=== PATIENT | female | born 1995 | race Caucasian/White ===

== ENCOUNTER 2017-04-03 21:00 | Outpatient (CLI) | payer OTHER ==
[~2017-04-03] VITALS: Ht 160 cm; Wt 117.2 kg
[~2017-04-03 21:00] MED LIST: FERR240T9 PO; LORA-441 PO; PREN1TAB17 PO
[2017-04-03 22:00] VITALS: BP 131/71; PULSE 80; RESP 18; Ht 160 cm; Wt 117.2 kg
--- NOTE | 2017-04-04 01:47 | RADRPT ---
PROCEDURE: ULTRASOUND OBSTETRICAL CLINICAL INDICATION: 21-year-old female with contractions for amniotic fluid index evalua tion. TECHNIQUE: Multiple sonographic images of the pelvis were obtained. The images were reviewed on a PACS workstation. COMPARISON: No prior studies are available for comparison. FINDINGS: The cervix is not well visualized. There is a single viable intrauterine gestation. Cardiac activit y is present with 163 beats per minute. There is a vertex presentation. The placenta is anterior. There is no evidence for an abruption or placenta previa. There is a normal amount of amniotic fluid with an TARA = 9.8 cm. IMPRESSION: 1. Single viable intrauterine gestation with vertex presentation. 2. The amniotic fluid index equals 9.8 cm. .Jean Esquivel MD, Date Time Electronically viewed and signed by .Jean Esquivel MD, on 04/04/2017 01:46 .M/
--- NOTE | 2017-04-04 06:14 | TRIAGE ---
OB Triage Datetime Report Generated by CPN: 04/04/2017 06:14 Datetime: 04/04/2017 04:18 Stage of : OB Triage Datetime: 04/04/2017 02:17 Labor Evaluation Frequency: 135 Labor Evaluation Frequency: 0 Monitor Mode: External Quality: Mild Pattern: Normal: <= 5 Contractions in 10 Minutes Resting Tone [place]: Relaxed Heart Rate FHR Baseline Rate: 135 Monitor Mode: External US FHR Baseline Changes: No Baseline Change Variability: Moderate 6-25 bpm Accelerations: 15X15 Decelerations: None Category: Category I Datetime: 04/04/2017 01:20 Monitor Mode: External Quality: Mild Pattern: Normal: <= 5 Contractions in 10 Minutes Resting Tone [place]: Relaxed Monitor Mode: External US FHR Baseline Changes: No Baseline Change Variability: Moderate 6-25 bpm Accelerations: 15X15 Decelerations: None Category: Category I Datetime: 04/04/2017 00:30 Stage of : OB Triage Datetime: 04/04/2017 00:21 Stage of : OB Triage Labor Evaluation Frequency: 0 Monitor Mode: External Heart Rate FHR Baseline Rate: 145 Monitor Mode: External US FHR Baseline Changes: No Baseline Change Variability: Moderate 6-25 bpm Accelerations: 15X15 Decelerations: None Category: Category I Datetime: 04/03/2017 23:32 Labor Evaluation Frequency: 0 Monitor Mode: External Heart Rate FHR Baseline Rate: 135 Monitor Mode: External US FHR Baseline Changes: No Baseline Change Variability: Moderate 6-25 bpm Accelerations: 15X15 Decelerations: None Category: Category I Datetime: 04/03/2017 23:00 Labor Evaluation Frequency: IRREGULAR Monitor Mode: External Duration (sec)2399: 60 Quality: Mild Pattern: Normal: <= 5 Contractions in 10 Minutes Resting Tone [place]: Relaxed Heart Rate FHR Baseline Rate: 135 Monitor Mode: External US FHR Baseline Changes: No Baseline Change Variability: Moderate 6-25 bpm Accelerations: 15X15 Decelerations: None Category: Category I Datetime: 04/03/2017 21:52 Labor Evaluation Frequency: 3-4 Monitor Mode: External Duration (sec)2399: 120 Quality: Mild Pattern: Normal: <= 5 Contractions in 10 Minutes Resting Tone [place]: Relaxed Heart Rate FHR Baseline Rate: 135 Monitor Mode: External US FHR Baseline Changes: No Baseline Change Variability: Moderate 6-25 bpm Accelerations: 15X15 Category: Category I Datetime: 04/03/2017 21:50 Vaginal Exam Dilatation (cms): 0.0 Effacement (%): 0 Station: -3 Exam By: Jaden NIX Pool: Negative Nitrazine: Negative ROM Test Kit: COLLECTED Datetime: 04/03/2017 21:37 Time of Arrival: 04/03/2017 20:53 EGA: 38.2 Arrived By: Ambulatory Arrived From: Home Chief Complaint: LEAKING SINCE 03/31 UC'S SINCE 03/31 Movement: Present Contractions: Irregular Patient Complaints: Contractions; Other Time Provider Notified: 04/04/2017 22:55 Provider Notified: DR VERGARA Initial Plan: EFM, CALL OB, SVE, ROM+, NITRAZINE Datetime: 04/03/2017 21:22 Contraction Comments: APPLIED Comments: APPLED Datetime: 04/03/2017 10:13 Comments: Loss of ultrasound contact with heart rate due to maternal obesity and position. R N at bedside, ultrasound readjusted.
--- NOTE | 2017-04-11 03:45 | HP ---
DATE OF ADMISSION: 04/03/2017 CHIEF COMPLAINT: Uterine contractions. HISTORY OF PRESENT ILLNESS: The patient is a 21-year-old, II, para I, 0, 0, I with single intrauterine at 38 weeks and 2 days who comes in complaining of uterine contractions, and possible leakage of fluid. She states good movements. Denies nausea, vomiting, shortness of breath, chest pain, headache, visual changes, vaginal bleeding, urinary or GI symptoms. PHYSICAL EXAMINATION: GENERAL: The patient is comfortable, in no acute distress. She has appropriate mood and affect. VITAL SIGNS: Blood pressure 20/61, pulse rate 78, respiratory rate 18, temperature 98. HEART: Regular rhythm and rate. No murmur. LUNGS: Clear to auscultation bilaterally. ABDOMEN: Soft. Nontender. No rebound or organomegaly. Uterine fundal height is 38 weeks. heart rate 140 BPM, moderate variability acceleration. No deceleration. Category I. Uterine contraction occasional. PELVIC: 1/50/-3/cephalic/intact membrane. BACK: No CVA tenderness bilateral. EXTREMITIES: Mild to moderate edema. No varicose veins, thigh or calf tenderness bilateral. Homans' sign is negative bilateral. ASSESSMENT AND PLAN: The patient is a 21-year-old, II, para I, 0, 0, I with single intrauterine at 38 weeks and 2 days, with occasional uterine contractions, and possible leakage of fluid. Nitrazine test was negative. Ultrasound performed which revealed adequate amniotic fluid. Repeat exam with no cervical changes. Signs and symptoms of labor preeclampsia, kick count was discussed with the patient in detail. She expressed understanding, all of her questions were answered. She is discharged home in stable condition. Follow up with her primary ASSEMBLY MEMBER. Dictated By: Arlene Dodson MD /guy/anabela /Document#: [id number] IRINA
== END 2017-04-04 02:55 | disposition home or self-care (01) ==
LOC: OBT 21:00 → L-D 21:02 → OBT 04-04 02:55
PROVIDERS: ATTEND Obstetrics & Gynecology
DX: O62.9 Abnormality of forces of labor, unspecified (principal); Z3A.38 38 weeks gestation of pregnancy
CPT/HCPCS: 76815; 84112; Z7500; G0463

== ENCOUNTER 2017-04-12 19:18 | Inpatient (IN) | payer OTHER ==
[~2017-04-12] VITALS: Ht 162.6 cm; Wt 116.7 kg
[~2017-04-12 19:18] MED LIST changes: -LORA-441 PO
[2017-04-12 20:43] VITALS: BP 133/78; PULSE 85; RESP 18
--- NOTE | 2017-04-12 21:52 | RADRPT ---
PROCEDURE: Obstetrical ultrasound greater than 14 weeks CLINICAL INDICATION: Gestational diabetes. Estimated weight TECHNIQUE: Real time sonographic imaging of the gravid uterus is performed transabdominally and mu ltiple static arriaga scale and Doppler images are submitted for review as are measurements. The image s are reviewed on the PACS. COMPARISON: No relevant exams are available FINDINGS: There is a single living intrauterine gestation in cephalic presentation. The heart beat is estimated at 137 bpm. The measurements are as follows: BPD:9.22 cm HC:33.30 cm AC:36.82 cm FL:7.53 cm Estimated gestational age is 38 weeks 5 days. The estimated date of delivery is 04/21/2017. The estimated weight is 3810 grams. Placenta is anterior and grade2. There is no evidence of placenta previa or abruption. RPTAT:HJJR IMPRESSION: 1. Single viable intrauterine gestation in cephalic presentation estimated at 38 weeks 5 days with t he estimated date of delivery 04/21/2017. 2. Estimated weight 3810 g (8 pounds 6 ounces). Physician Dipak Date Time Electronically viewed and signed by Physician Dipak on 04/12/2017 21:51 JR/
--- NOTE | 2017-04-12 21:53 | RADRPT ---
PROCEDURE: US OB. CLINICAL INDICATION: Gestational diabetes TECHNIQUE: Pelvic ultrasound performed for biophysical profile. COMPARISON: 04/04/2017 FINDINGS: Single intrauterine gestation present with heart rate at 158 beats per minute. Presentation is ceph alic. Placenta is anterior, grade II. Biophysical profile score is 8/8 (breathing=2, movement=2, t one =2, fluid volume=2). Amniotic fluid volume is within normal limits, with TARA = 6.5 cm. RPTAT:HJJR IMPRESSION: 1. Biophysical profile score 8/8. 2. Amniotic fluid index 6.5 cm, previously 9.8 cm on the study of 04/04/2017. Physician Dipak Date Time Electronically viewed and signed by Physician Dipak on 04/12/2017 21:53 /
[2017-04-12] MEDS ORDERED: OXYTOCIN 30 UNITS/LR 500 ML IV PRN (22:00)
[2017-04-12] MEDS ORDERED: OXYTOCIN 30 UNITS/LR 500 ML IV SCH ×2 (22:00)
[2017-04-12] MEDS ORDERED: MISOPROSTOL 200 MCG TAB PR PRN (22:00)
[2017-04-12] MEDS ORDERED: METHYLERGONOVINE 0.2 MG INJ IM PRN (22:00)
[2017-04-12] MEDS ORDERED: CARBOPROST 250 MCG INJ IM PRN (22:00)
[2017-04-12] MEDS ORDERED: IBUPROFEN 600 MG TAB PO PRN (22:00)
[2017-04-12] MEDS ORDERED: AMPICILLIN 2 GM/NS (PMX) 100 ML IV ONE (22:00)
[2017-04-12] MEDS ORDERED: LIDOCAINE 1% (MPF) 30 ML INJ INJ PRN (22:00)
[2017-04-12] MEDS ORDERED: BUTORPHANOL 2 MG INJ IV PRN (22:00)
--- NOTE | 2017-04-12 22:41 | TRIAGE ---
OB Triage Datetime Report Generated by CPN: 04/12/2017 22:40 Datetime: 04/12/2017 21:26 Vaginal Exam Dilatation (cms): 2.0 Effacement (%): 50 Station: -4 Exam By: DR SOLANO Membrane Status: Intact Datetime: 04/12/2017 19:30 Time of Arrival: 04/12/2017 19:14 EGA: 39.4 Arrived By: Wheelchair Arrived From: Home Chief Complaint: c/ A1DM w/ c/o pelvic pain and "stretching pain" and burning x 2 day and DFM . States was called by clinic and told to come to hospital for monitoring and possible IOL Movement: Decreased Contractions: Occasional Rupture of Membranes: Denies Vaginal Bleeding: None Vaginal Discharge: Denies Recent Sexual Intercouse: Denies Abdominal Trauma: Not Applicable Patient Complaints: Contractions Time Provider Notified: 04/12/2017 20:00 Provider Notified: Dr Solano Initial Plan: EFM,SVE,EFW,BPP Datetime: 04/10/2017 10:59 Heart Rate Comments: Loss of contact, u/s adj, no decel ausc Datetime: 04/03/2017 21:37 EGA: 38.2
[2017-04-12] MEDS ORDERED: LACTATED RINGER'S 1,000 ML IV PRN (23:30)
--- NOTE | 2017-04-13 00:16 | HP ---
Date/Time of Note Date/Time of Note DATE: 04/13/17 TIME: 00:12 OB - History Hx of Present Free Text/Dictation 21-year-old with IUP at 39+ weeks with GDM A1 presented with complaint of decreased movement to triage. She was noted to be 2 cm dilated 50-4. Presentation vertex. TARA was 6. Due to decreased movement as well as GDM and borderline low TARA discussed with the patient regarding induction. Risk and benefit discussed. Patient desires to proceed. : 2 Para: 1 Spontaneous : 0 Care: Good Care Obstetrical Complications: Gestational Diabetes Other Concerns: Gestational diabetes, diet-controlled Past Family/Social History * Past Medical, Surgical, Family and Obstetric Histories reviewed from chart. OB Admission Exam Vital Signs Vital Signs Vital Signs Date Time Temp Pulse Resp B/P Pulse Ox O2 Delivery O2 Flow Rate FiO2 04/12/17 20:43 98.7 85 18 133/78 Room Air Physical Exam HEENT: WNL Heart: Rhythm Normal Lungs: Clear Abdomen: WNL Extremities: Normal Reflexes: Normal (1+ bilateral nonpitting edema) Cervical Dilatation: 2cm Effacement: 50% Station: -3 Membranes: Intact Heart Rate: 130's Accelerations: Accelerations Present Decelerations: No Decelerations Varibility: Moderate Contractions on Admission: >10 Minutes Apart Intensity: Mild OB Assessment/Plan Other Assessment: IUP at 39+ weeks GDM, A1 Decreased movement Borderline low TARA Obesity LGA Discussed regarding induction Cervix nonfavorable Risk and benefit of induction discussed Patient desires to proceed Modes of induction discussed including Cytotec versus Cervidil versus mechanical. Desires Cytotec Anticipate Obtain GBS results Consider prophylaxis if GBS is positive BROOKE SOLANO MD Apr 13, 2017 00:15
[2017-04-13] MEDS: LACTATED RINGER'S 1,000 ML IV SCH ×2 (00:45→07:18)
[2017-04-13 01:06] LABS: ADD SCAN DIFF NO
[2017-04-13 01:08] LABS: BASOPHILS % 0.1 % (0.0-2.0); EOSINOPHILS # 0.1 10^3/ul (0.0-0.5); EOSINOPHILS % 1.1 % (0.0-7.0); HEMATOCRIT 34.8 % (37.0-47.0); HEMOGLOBIN 11.6 g/dl (12.0-16.0); LYMPHOCYTES % 21.3 % (15.0-51.0); MEAN CORPUSCULAR HEMOGLOBIN 27.5 pg (29.0-33.0); MEAN CORPUSCULAR HGB CONC 33.3 g/dl (32.0-37.0); MEAN CORPUSCULAR VOLUME 82.5 fl (82.0-101.0); MEAN PLATELET VOLUME 11.9 fl (7.4-10.4); MONOCYTE # 0.5 10^3/ul (0.3-0.9); MONOCYTES % 5.8 % (0.0-11.0); NEUTROPHIL # 6.6 10^3/ul (1.6-7.5); NEUTROPHILS % 71.3 % (39.0-77.0); PLATELET COUNT 172 10^3/UL (140-415); RED BLOOD COUNT 4.22 10^6/ul (4.20-5.40); RED CELL DISTRIBUTION WIDTH 13.7 % (11.5-14.5); WHITE BLOOD COUNT 9.3 10^3/ul (4.8-10.8)
[2017-04-13 01:24] LABS: INR 0.89; PT RATIO 0.9
[2017-04-13 01:25] LABS: PARTIAL THROMBOPLASTIN TIME 28.1 Sec (25.0-35.0)
[2017-04-13] MEDS: MISOPROSTOL 25 MCG CAPSULE PO SCH ×2 (01:28→05:33)
[2017-04-13] MEDS ORDERED: AMPICILLIN 1 GM/NS (PMX) 50 ML IV SCH (02:00)
[2017-04-13] MEDS ORDERED: MINERAL OIL LIGHT 10 ML VIAL TOP PRN (08:30)
[2017-04-13] MEDS ORDERED: OXYTOCIN 30 UNITS/LR 500 ML IV SCH (09:00)
--- NOTE | 2017-04-13 11:06 | RADRPT ---
PROCEDURE: US biophysical profile. CLINICAL INDICATION: Decreased motion. TECHNIQUE: Multiple sonographic images of the uterus were obtained. The images were revi ewed on a PACS workstation. COMPARISON: 04/12/2017. FINDINGS: There is a single live intrauterine gestation. heart rate is 139 beats per minute. The position is cephalic. The placenta is anterior grade II with no abruption or previa. The TARA is 8.0 cm. (Normal = 5-20 cm.) Breathing Movement: 2 Gross Body Movement: 2 Tone: 2 Qualitative Amniotic Fluid Volume: 2 TOTAL: 8 IMPRESSION: 1. The biophysical score is 8/8. RPTAT: QQ .Jose De Jesus Saavedra MD, MD Date Time Electronically viewed and signed by .Jose De Jesus Saavedra MD, on 04/13/2017 11:05 .R/
--- NOTE | 2017-04-15 17:35 | PN ---
Triage Information Date/Time April 13, 2017 Hospital consult Weeks of Gestation This patient is a 21 years old 2 para 1 with estimated date of confinement of April 18, 2017 which makes her 39 weeks and 5 days . She was admitted this morning due to gestational diabetes mellitus and TARA of 6.1 cm yesterday On pelvic examination her cervix is 3 cm soft -2 station intact membranes. She was admitted in the hospital for induction of labor due to above conditions After 4 hours however patient decided to leave the hospital and to return when she is labor Current Medications Medications (Trade) Dose Ordered Sig/Janie Route PRN Reason Start Time Stop Time Status Last Admin Dose Admin Lactated Ringer's 1,000 ml @ 125 mls/hr Q8H IV 04/12/17 21:45 04/13/17 13:19 DC 04/13/17 07:18 125 MLS/HR Ampicillin 100 ml @ 100 mls/hr ONCE ONCE IV 04/12/17 22:00 04/13/17 02:26 DC Ampicillin (Ampicillin 1 Gm/ NS (Pmx)) 50 ml @ 100 mls/hr Q4H IV 04/13/17 02:00 04/13/17 02:26 DC Misoprostol (Cytotec 25 Mcg Capsule) 50 mcg Q4 PO 04/13/17 01:00 04/13/17 10:18 DC 04/13/17 05:33 50 MCG Butorphanol Tartrate (Stadol) 2 mg Q2H PRN IV PAIN 04/12/17 22:00 04/13/17 13:19 DC 04/13/17 06:19 2 MG Lidocaine 30 ml 30 ml ONCE PRN INJ EPISIOTOMY/TEARING 04/12/17 22:00 04/13/17 13:19 DC Oxytocin/Lactated Ringer's 500 ml @ 125 mls/hr ONCE -MAY REPEAT X1 IV 04/12/17 22:00 04/13/17 13:19 DC Oxytocin/Lactated Ringer's 500 ml @ 125 mls/hr ONCE IV 04/12/17 22:00 04/13/17 13:19 DC Ibuprofen 600 mg 600 mg ONCE PRN PO Mild Pain (Pain Score 1-3) 04/12/17 22:00 04/13/17 13:19 DC Lactated Ringer's 1,000 ml @ 2,000 mls/hr Q30M PRN IV PRE-EPIDURAL BOLUS 04/12/17 23:30 04/13/17 13:19 DC Oxytocin/Lactated Ringer's 500 ml @ 0 mls/hr ONCE PRN IV For Hemorrhage Management 04/12/17 22:00 04/13/17 13:19 DC Methylergonovine Maleate (Methergine) 0.2 mg ONCE PRN IM VAGINAL BLEEDING 04/12/17 22:00 04/13/17 13:19 DC Carboprost Tromethamine (Hemabate) 250 mcg ONCE PRN IM VAGINAL BLEEDING 04/12/17 22:00 04/13/17 13:19 DC Misoprostol (Cytotec) 1,000 mcg ONCE PRN MN VAGINAL BLEEDING 04/12/17 22:00 04/13/17 13:19 DC Mineral Oil 30 ml 30 ml ONCE PRN TOP WTIH DELIVERY 04/13/17 08:30 04/13/17 13:19 DC Oxytocin/Lactated Ringer's 500 ml @ 0 mls/hr Q0M IV 04/13/17 09:00 04/13/17 13:19 DC : 22 Para: 1 Diabetes: gestational Hypertention: none Objective Vital Signs Date Time Temp Pulse Resp B/P Pulse Ox O2 Delivery O2 Flow Rate FiO2 04/12/17 20:43 98.7 85 18 133/78 Room Air Results/Medications Result Diagram: 04/13/17 0029 04/13/17 0029 Results 24 hrs I explained to her the need for induction and delivery due to the fact has she is 39-1/2 weeks with gestational diabetes and low TARA. However patient did not change her mind Assessment/Plan And a left the hospital AGAINST MEDICAL ADVICE End of dictation thank you NATO CHRISTIANSEN MD Apr 15, 2017 17:35 NATO CHRISTIANSEN MD Apr 15, 2017 17:35 End of dictation thank you NATO CHRISTIANSEN MD Apr 15, 2017 17:35
== END 2017-04-13 13:18 | disposition left against medical advice (07) | DRG 781 ==
LOC: OBT 19:18 → L-D 19:21 → OBT 21:45
PROVIDERS: ADMIT Obstetrics & Gynecology Obstetrics; ATTEND Obstetrics & Gynecology
DX: O24.419 Gestational diabetes mellitus in pregnancy, unspecified control (principal); Z68.41 Body mass index [BMI] 40.0-44.9, adult; O99.213 Obesity complicating pregnancy, third trimester; E66.9 Obesity, unspecified; O76 Abnormality in fetal heart rate and rhythm complicating labor and delivery; Z3A.39 39 weeks gestation of pregnancy
CPT/HCPCS: 76815; 76818; 82947; 82962; 85025; 85610; 85730; 86592; 86900; 86901; 87340; G0463; J0595; J2590; J7120

== ENCOUNTER 2017-04-13 22:22 | Inpatient (IN) | payer OTHER ==
[~2017-04-13] VITALS: Ht 162.6 cm; Wt 117.4 kg
[2017-04-13 22:13] VITALS: Ht 162.6 cm; Wt 117.4 kg
[~2017-04-13 22:22] MED LIST changes: +LORA-441 PO
[2017-04-13] MEDS ORDERED: OXYTOCIN 30 UNITS/LR 500 ML IV PRN (22:30)
[2017-04-13] MEDS ORDERED: LACTATED RINGER'S 1,000 ML IV PRN (22:30)
[2017-04-13] MEDS ORDERED: ACETAMINOPHEN/CODEINE #3 TAB PO PRN (22:30)
[2017-04-13] MEDS ORDERED: BUTORPHANOL 2 MG INJ IV PRN (22:30)
[2017-04-13] MEDS ORDERED: OXYTOCIN 30 UNITS/LR 500 ML IV SCH ×2 (22:30)
[2017-04-13] MEDS ORDERED: IBUPROFEN 600 MG TAB PO PRN (22:30)
[2017-04-13] MEDS ORDERED: MISOPROSTOL 200 MCG TAB PR PRN (22:30)
[2017-04-13] MEDS ORDERED: CARBOPROST 250 MCG INJ IM PRN (22:30)
[2017-04-13] MEDS ORDERED: METHYLERGONOVINE 0.2 MG INJ IM PRN (22:30)
[2017-04-13] MEDS: LACTATED RINGER'S 1,000 ML IV SCH (23:28)
[2017-04-13] MEDS ORDERED: MINERAL OIL LIGHT 10 ML VIAL TOP PRN (23:30)
[2017-04-13 23:46] VITALS: BP 131/59; PULSE 74
[2017-04-14] MEDS: LACTATED RINGER'S 1,000 ML IV* SCH ×2 (02:43→12:45)
[2017-04-14] MEDS: OXYTOCIN 30 UNITS/LR 500 ML IV SCH ×2 (06:03→08:36)
[2017-04-14] MEDS: LACTATED RINGER'S 1,000 ML IV SCH (06:14)
[2017-04-14] MEDS ORDERED: CEFAZOLIN 2 GM/50 ML (PMX) 50 ML IVPB ONE ×3 (06:20→14:00)
[2017-04-14] MEDS: LIDOCAINE 1% (MPF) 30 ML INJ INJ PRN ×2 (06:20→06:21)
[2017-04-14] MEDS ORDERED: CARBOPROST 250 MCG INJ ONE (07:00)
[2017-04-14] MEDS ORDERED: PHENYLephrine (100 MCG/ML) 5ML SYG ONE (07:58)
[2017-04-14] MEDS ORDERED: EPHEDrine SULFATE 50 MG/5 ML SYG ONE (08:12)
[2017-04-14 08:35] LABS: ADD SCAN DIFF NO
[2017-04-14 09:02] LABS: BASOPHILS % 0.1 % (0.0-2.0); HEMOGLOBIN 9.9 g/dl (12.0-16.0); LYMPHOCYTES # 1.1 10^3/ul (0.8-2.9); LYMPHOCYTES % 6.3 % (15.0-51.0); MEAN CORPUSCULAR HEMOGLOBIN 26.8 pg (29.0-33.0); MEAN CORPUSCULAR HGB CONC 31.9 g/dl (32.0-37.0); MEAN CORPUSCULAR VOLUME 83.8 fl (82.0-101.0); MEAN PLATELET VOLUME 11.9 fl (7.4-10.4); MONOCYTE # 0.6 10^3/ul (0.3-0.9); MONOCYTES % 3.4 % (0.0-11.0); NEUTROPHIL # 16.1 10^3/ul (1.6-7.5); NEUTROPHILS % 89.5 % (39.0-77.0); PLATELET COUNT 215 10^3/UL (140-415); RED CELL DISTRIBUTION WIDTH 13.7 % (11.5-14.5)
[2017-04-14] MEDS ORDERED: OXYTOCIN 30 UNITS/LR 500 ML IV SCH (10:43)
[2017-04-14] MEDS ORDERED: LANOLIN 7 GM TUBE TOP PRN (11:00)
[2017-04-14] MEDS ORDERED: OXYCODONE/ASPIRIN (4.88/325) TAB PO PRN (11:00)
[2017-04-14] MEDS ORDERED: DIBUCAINE 1% 30 GM OINT PR PRN (11:00)
[2017-04-14] MEDS ORDERED: SENNA/DOCUSATE NA (8.6MG/50MG) TAB PO PRN (11:00)
[2017-04-14] MEDS ORDERED: OXYTOCIN 30 UNITS/LR 500 ML IV PRN (11:00)
[2017-04-14] MEDS ORDERED: MISOPROSTOL 200 MCG TAB PR PRN (11:00)
[2017-04-14] MEDS ORDERED: CARBOPROST 250 MCG INJ IM PRN (11:00)
[2017-04-14] MEDS ORDERED: BENZOCAINE 20% 56 ML SPRAY TOP PRN (11:00)
[2017-04-14] MEDS ORDERED: METHYLERGONOVINE 0.2 MG INJ IM PRN (11:00)
[2017-04-14] MEDS ORDERED: WITCH HAZEL/GLYCERIN PAD PR PRN (11:00)
[2017-04-14 11:15] VITALS: BP 117/65; PULSE 109
[2017-04-14 16:09] LABS: BASOPHILS % 0.1 % (0.0-2.0); HEMATOCRIT 24.6 % (37.0-47.0); HEMOGLOBIN 8.4 g/dl (12.0-16.0); LYMPHOCYTES # 1.7 10^3/ul (0.8-2.9); LYMPHOCYTES % 11.8 % (15.0-51.0); MEAN CORPUSCULAR HEMOGLOBIN 28.2 pg (29.0-33.0); MEAN CORPUSCULAR HGB CONC 34.1 g/dl (32.0-37.0); MEAN CORPUSCULAR VOLUME 82.6 fl (82.0-101.0); MEAN PLATELET VOLUME 11.4 fl (7.4-10.4); MONOCYTES % 6.5 % (0.0-11.0); NEUTROPHIL # 11.9 10^3/ul (1.6-7.5); NEUTROPHILS % 81.1 % (39.0-77.0); PLATELET COUNT 179 10^3/UL (140-415); RED BLOOD COUNT 2.98 10^6/ul (4.20-5.40); RED CELL DISTRIBUTION WIDTH 13.7 % (11.5-14.5); WHITE BLOOD COUNT 14.7 10^3/ul (4.8-10.8)
[2017-04-14 16:10] VITALS: BP 116/55; PULSE 110; RESP 16
[2017-04-14] MEDS: IBUPROFEN 600 MG TAB PO SCH (16:11)
--- NOTE | 2017-04-14 17:25 | LDN ---
Date/Time of Note Date/Time of Note DATE: 04/14/17 TIME: 17:19 Delivery Summary normal vaginal delivery force of pushing was uncontrolable laceration was extended to left labia majora Weeks of Gestation 38w6d Placenta Delivered: Spontaneously Meconium: Light Episiotomy: No Laceration repair: 00ch cat gut Anesthesia type: Local Estimated blood loss: 7 Sponge & Needle done & correct: Yes All needle counts correct: Yes Problems: Infant Delivery Information Sex Sex: male Apgars 1 Minute: 8 5 Minute: 9 Umbilical Cord Cord presentations: no nuchal cord Cord Blood was obtained: Yes Mother & Baby Disposition Disposition Mom & Baby to Maternity; Good: Yes Mom transferred to: Other () Baby to NICU: No ISI RIOS MD Apr 14, 2017 17:25
--- NOTE | 2017-04-14 17:31 | HP ---
Date/Time of Note Date/Time of Note DATE: 04/14/17 TIME: 17:26 OB - History Hx of Present Free Text/Dictation 21 y.o at 39w6d in labor with intact membrrane. A1DM Ve 3cm admitted for expectant management Chief Complaint: U.C Estimated Due Date: Apr 15, 2017 : 2 Para: 1 Spontaneous : 0 Therapeutic : 0 Care: Good Care Ultrasounds: Normal mid trimester US Obstetrical Complications: Gestational Diabetes Medical Complications: None Past Family/Social History * Past Medical, Surgical, Family and Obstetric Histories reviewed from chart. Blood Type: O+ Rubella: immune RPR/VDRL: Negative GBS Status: Negative HBsAG: Negative OB Admission Exam Vital Signs Vital Signs Vital Signs Date Time Temp Pulse Resp B/P Pulse Ox O2 Delivery O2 Flow Rate FiO2 04/14/17 16:10 98.8 110 16 116/55 04/14/17 11:15 Room Air Physical Exam HEENT: WNL Heart: Rhythm Normal Lungs: Clear, Equal Abdomen: WNL Extremities: Normal Reflexes: Normal Cervical Dilatation: 3cm Station: -3 Membranes: Intact Heart Rate: 140's Accelerations: Accelerations Present Decelerations: No Decelerations Varibility: Moderate Contractions on Admission: < 5 Minutes Apart Intensity: Mild Last 72 hourBlood Glucose Bedside Glucose - 72 Hours Test 04/14/17 01:52 Bedside Glucose 90mg/dL (70-220) Last 72 hours Lab Results CBC & BMP 04/14/17 08:22 04/14/17 15:57 OB Assessment/Plan Other Assessment: IUP 39w6d in labor Plan: Expectant Management ISI RIOS MD Apr 14, 2017 17:31
[2017-04-14 20:30] VITALS: BP 108/55; PULSE 108; RESP 19
[2017-04-15] MEDS: IBUPROFEN 600 MG TAB PO SCH ×5 (00:12→23:27)
[2017-04-15 00:15] VITALS: BP 114/54; PULSE 95; RESP 18
[2017-04-15] MEDS: LACTATED RINGER'S 1,000 ML IV* SCH ×2 (02:43→10:43)
[2017-04-15 04:00] VITALS: BP 113/52; PULSE 85; RESP 18
[2017-04-15 08:40] LABS: BASOPHILS % 0.2 % (0.0-2.0); EOSINOPHILS % 0.5 % (0.0-7.0); HEMATOCRIT 21.6 % (37.0-47.0); LYMPHOCYTES # 1.6 10^3/ul (0.8-2.9); MEAN CORPUSCULAR HEMOGLOBIN 27.5 pg (29.0-33.0); MEAN CORPUSCULAR HGB CONC 32.4 g/dl (32.0-37.0); MEAN CORPUSCULAR VOLUME 84.7 fl (82.0-101.0); MEAN PLATELET VOLUME 11.1 fl (7.4-10.4); MONOCYTE # 0.5 10^3/ul (0.3-0.9); MONOCYTES % 5.4 % (0.0-11.0); NEUTROPHIL # 6.4 10^3/ul (1.6-7.5); NEUTROPHILS % 74.4 % (39.0-77.0); PLATELET COUNT 157 10^3/UL (140-415); RED BLOOD COUNT 2.55 10^6/ul (4.20-5.40); RED CELL DISTRIBUTION WIDTH 14.1 % (11.5-14.5); WHITE BLOOD COUNT 8.6 10^3/ul (4.8-10.8)
[2017-04-15 08:45] VITALS: BP 120/47; PULSE 90; RESP 18
--- NOTE | 2017-04-15 11:07 | PN ---
Date/Time of Note Date/Time of Note DATE: 04/15/17 TIME: 11:05 OB Subjective Subjective Subjective day 1 afebrile vital signs are stable who complained of dizziness or lightheadedness with a hemoglobin of 7 hematocrit of 21.6 patient was placed on ferrous sulfate and she will continue MAYE JOE MD Apr 15, 2017 11:07
[2017-04-15 15:45] VITALS: BP 131/61; PULSE 88; RESP 18
[2017-04-15 20:05] VITALS: BP 136/68; PULSE 84; RESP 18
[2017-04-16 03:50] VITALS: BP 120/64; PULSE 88; RESP 20
[2017-04-16] MEDS: IBUPROFEN 600 MG TAB PO SCH ×2 (05:37→14:00)
[2017-04-16 08:42] LABS: ABNORMAL IP MESSAGE 1; BASOPHILS % 0.3 % (0.0-2.0); EOSINOPHILS # 0.2 10^3/ul (0.0-0.5); EOSINOPHILS % 2.1 % (0.0-7.0); HEMATOCRIT 21.6 % (37.0-47.0); LYMPHOCYTES # 1.4 10^3/ul (0.8-2.9); LYMPHOCYTES % 18.8 % (15.0-51.0); MEAN CORPUSCULAR HEMOGLOBIN 27.2 pg (29.0-33.0); MEAN CORPUSCULAR HGB CONC 31.9 g/dl (32.0-37.0); MEAN PLATELET VOLUME 11.5 fl (7.4-10.4); MONOCYTE # 0.4 10^3/ul (0.3-0.9); MONOCYTES % 5.2 % (0.0-11.0); NEUTROPHIL # 5.5 10^3/ul (1.6-7.5); NEUTROPHILS % 72.7 % (39.0-77.0); PLATELET COUNT 179 10^3/UL (140-415); RED BLOOD COUNT 2.54 10^6/ul (4.20-5.40); RED CELL DISTRIBUTION WIDTH 14.4 % (11.5-14.5); WHITE BLOOD COUNT 7.5 10^3/ul (4.8-10.8)
[2017-04-16 08:51] LABS: HEMOGLOBIN 6.9 g/dl (12.0-16.0); POSITIVE DIFF @See below
[2017-04-16 09:00] VITALS: BP 97/51; PULSE 105; RESP 18
[2017-04-16] MEDS ORDERED: DIPHTH/TET/ACEL PERTUSS (ADULT) 0.5 ML VIAL IM* ONE (09:00)
--- NOTE | 2017-04-16 13:08 | PD.PPDC ---
HR ASSISTANT Discharge Instruction Condition Patient Condition: Good Diet Diet: Resume Regular Diet Activity/Restrictions Activity: Normal Activity May Shower Restrictions: No Exercising No Lifting No Driving No Sexual Activity Nothing in the Vagina No [place] No Tampons, douche Follow-up Follow-up with Physician: 2, Week/Weeks Provider Information: instructions given recommended patient to make an appointment in 2 weeks to be seen at the clinic Return to clinic for PMP PROJECT MANAGER Instructions: Fever greater than 101 Chills Worsening abdominal pain Excessive Vaginal Bleeding More than 2 pads per hour Unable to tolerate diet OB Instructions: Breast Tenderness Depression Blurried Vision Headache Surgical Instructions: Incisional Drainage Incisional Redness MAYE JOE MD Apr 16, 2017 13:08
--- NOTE | 2017-04-16 13:11 | DS ---
Date/Time of Note Date/Time of Note DATE: 04/16/17 TIME: 13:09 Discharge Summary Admission/Discharge Info Admit Date/Time Apr 13, 2017 at 22:22 Discharge Date/Time April 16, 2017 at 1300 Discharge Diagnosis Term day 2 post normal vaginal delivery Patient Condition: Good Procedures Normal spontaneous vaginal delivery Hx of Present Illness Term Hospital Course Satisfactory uneventful Home Meds Reported Medications Ferrous Gluconate (Iron) 1 Tab Tablet, 1 TAB PO DAILY 01/26/15 Vit-Iron Fumarate-FA ( Tablet) 1 Each Tablet, 1 TAB PO DAILY, TAB 01/26/15 Follow-up Plan instructions given recommended patient to make appointment to be seen at the clinic in 2 weeks Primary Care Provider [facility] Time spent on discharge: < 30 minutes Pending Labs Laboratory Tests Test 04/16/17 07:20 White Blood Count 7.510^3/ul (4.8-10.8) Red Blood Count 2.5410^6/ul (4.20-5.40) Hemoglobin 6.9g/dl (12.0-16.0) Hematocrit 21.6% (37.0-47.0) Mean Corpuscular Volume 85.0fl (82.0-101.0) Mean Corpuscular Hemoglobin 27.2pg (29.0-33.0) Mean Corpuscular Hemoglobin Concent 31.9g/dl (32.0-37.0) Red Cell Distribution Width 14.4% (11.5-14.5) Platelet Count 11679^3/UL (140-415) Mean Platelet Volume 11.5fl (7.4-10.4) Neutrophils % 72.7% (39.0-77.0) Lymphocytes % 18.8% (15.0-51.0) Monocytes % 5.2% (0.0-11.0) Eosinophils % 2.1% (0.0-7.0) Basophils % 0.3% (0.0-2.0) Nucleated Red Blood Cells % 0.0/100WBC (0.0-0.0) Neutrophils # 5.510^3/ul (1.6-7.5) Lymphocytes # 1.410^3/ul (0.8-2.9) Monocytes # 0.410^3/ul (0.3-0.9) Eosinophils # 0.210^3/ul (0.0-0.5) Basophils # 0.010^3/ul (0.0-0.1) Nucleated Red Blood Cells # 0.010^3/ul (0.0-0.0) MAYE JOE MD Apr 16, 2017 13:11
--- NOTE | 2017-04-17 06:32 | OPR ---
DATE OF OPERATION: 04/14/2017 PREOPERATIVE DIAGNOSES: 1. hemorrhage. 2. Retained products of conception. POSTOPERATIVE DIAGNOSES: 1. hemorrhage. 2. Retained products of conception. OPERATIVE PROCEDURE: 1. Dilatation, curettage and suction. 2. Examination under anesthesia. 3. Repair of vaginal laceration. ANESTHESIA: Spinal. COMPLICATIONS: None. ESTIMATED BLOOD LOSS: Less than 100 mL ANESTHESIOLOGIST: Ely Lawson MD OPERATIVE PROCEDURE: The patient was taken to the operating room after being called by the nurse that the patient's attending physician was not available at the moment. The patient had been bleeding for a couple of hours. First, examination was done at the labor room. The patient was very uncomfortable. The decision was made to take the patient to the operating room. After taking the patient to the operating room and receiving spinal anesthesia, an examination was done under anesthesia. Weighted speculum was placed inside the vaginal vault. The anterior lip of the cervix was grasped by sponge forceps and suction size 11 was inserted so the cavity was suctioned. The sharp curettage of the endometrial cavity was done. There were a couple of preureteral lacerations that were repaired. The hemostasis was achieved. The patient was not bleeding anymore. was placed inside the vaginal vault on top of the lacerations. The patient tolerated the procedure well and was transferred to the recovery room in stable condition. There were no complications regarding the surgery. The patient's attending of the case, Dr. Falcon, is in the hospital right now. He took over the care of the patient and will follow up on the patient. Proper communications were done. Dictated By: Travis Gonzáles MD /guy/wali /Document#: [id number]
== END 2017-04-16 14:50 | disposition home or self-care (01) | DRG 767 ==
LOC: L-D 22:22 → PP1 04-14 10:22 → L-D 04-14 10:28 → PP1 04-14 11:06 → EDSTATUS 04-15 22:18
PROVIDERS: ADMIT Obstetrics & Gynecology; ATTEND Obstetrics & Gynecology
PROC: 10E0XZZ Delivery of Products of Conception, External Approach (ICD-10-PCS; principal; 2017-04-13)
PROC: 10D17ZZ Extraction of Products of Conception, Retained, Via Natural or Artificial Opening (ICD-10-PCS; 2017-04-14)
PROC: 0UQG7ZZ Repair Vagina, Via Natural or Artificial Opening (ICD-10-PCS; 2017-04-14)
DX: O80 Encounter for full-term uncomplicated delivery (principal); O24.420 Gestational diabetes mellitus in childbirth, diet controlled; O72.0 Third-stage hemorrhage; O71.4 Obstetric high vaginal laceration alone; Z37.0 Single live birth; Z3A.38 38 weeks gestation of pregnancy
CPT/HCPCS: 82962; 85025; 85730; 86850; 86900; 86901; 86920; 90715; J0595; J0690; J2370; J2590; J7120

== ENCOUNTER 2017-10-02 00:21 | Emergency (ER) | END 2017-10-02 02:42 | disposition home or self-care (01) ==

== ENCOUNTER 2017-10-13 13:07 | Emergency (ER) | END 2017-10-13 14:20 | disposition home or self-care (01) ==

== ENCOUNTER 2018-01-30 02:41 | Emergency (ER) | END 2018-01-30 07:58 | disposition home or self-care (01) ==

== ENCOUNTER 2018-04-13 17:01 | Observation (INO) | END 2018-04-14 11:45 | disposition home or self-care (01) ==

== ENCOUNTER 2018-04-19 16:21 | Emergency (ER) | END 2018-04-19 19:23 | disposition home or self-care (01) ==